=== PATIENT | female | born 1970 | race African-American/Black ===

== ENCOUNTER 2018-01-25 16:57 | Emergency (ER) | payer MEDICAID ==
[~2018-01-25] VITALS: Ht 157.5 cm; Wt 74.0 kg
[2018-01-25 17:55] VITALS: BP 128/79
== END 2018-01-25 18:30 | disposition home or self-care (01) ==
LOC: ER 17:08
DX: F41.9 Anxiety disorder, unspecified (principal); J45.909 Unspecified asthma, uncomplicated; I10 Essential (primary) hypertension; F17.200 Nicotine dependence, unspecified, uncomplicated; Z88.8 Allergy status to other drugs, medicaments and biological substances
CPT/HCPCS: 99283; 99284